=== PATIENT | female | born 1965 | race Caucasian/White ===

== ENCOUNTER 2024-11-21 13:01 | Outpatient (AMB) | payer MEDICAID, SELFPAY ==
[2024-11-21 13:18] VITALS: BP 154/84; PULSE 68; RESP 18; TEMP 36.2; O2SAT 97; BMI 38.0
--- NOTE | 2024-11-21 13:18 | PD.ORTHCLVIS ---
Vital signs 11/21/24 13:18 Height 1.63 m Height Method Measured Weight 100.499 kg Weight Measurement Method Standing Scale BMI 38.0 BP 154/84 H Blood Pressure Source Automatic Cuff Blood Pressure Location Right Upper Arm Position Sitting Respiration 18 Pulse 68 Pulse Source Monitor Temp 97.2 F Temp Source Temporal Artery Scan Pulse Oximetry (%) 97 Oxygen Delivery Method Room Air Med/Allergies Allergies & Medications Allergies No Known Allergies Allergy (Verified 11/21/24 13:23) Medication Reconciliation celecoxib 100 mg capsule 100 mg PO BID 11/21/24 [History Confirmed 11/21/24] gabapentin 300 mg capsule 300 mg PO QDAY 11/21/24 [History Confirmed 11/21/24] hydroxyzine HCl 50 mg tablet 50 mg PO QID PRN 11/21/24 [History Confirmed 11/21/24] lisinopril 5 mg tablet 5 mg PO QDAY 11/21/24 [History Confirmed 11/21/24] methocarbamol 750 mg tablet 750 mg PO QHS 11/21/24 [History Confirmed 11/21/24] omeprazole 20 mg capsule,delayed release 20 mg PO QDAY 11/21/24 [History Confirmed 11/21/24] Exam Exam Patient is in no acute distress and is cooperative with the examination today. Breathing is nonlabored. In no respiratory distress. Bilateral extremities were evaluated and demonstrates sensation intact to light touch. Palpable pedal pulses are present. No significant edema is present. Bilateral hips were examined. The patient has no pain with log roll of the hips. Internal rotation to 30 degrees and external rotation to 30 degrees is painless. Negative FADIR. The left knee was examined. The left knee is in varus alignment. Range of motion from 0-115 degrees. Knee is stable to varus and valgus as well as AP translation with <5mm. Patient has a negative McMurrays. There is no pain with patellofemoral compression and no crepitus noted. The knee is tender to palpation medially. The right knee was also examined. The right knee is in varus alignment. Range of motion from 0-120 degrees. Knee is stable to varus and valgus as well as AP translation with <5mm. Patient has a negative McMurrays. There is no pain with patellofemoral compression and no crepitus noted. The knee is tender to palpation medially. Bilateral knee x-rays from [place] [facility] reviewed. This demonstrates complete collapse of the medial joint space. There is obliteration with varus deformity. Assessment and Plan Problem List (1) Degenerative arthritis of knee, bilateral: Status: Acute Plan: Patient is a 59-year-old female with bilateral knee pain and bilateral knee arthritis of significant severity. We will obtain weightbearing x-rays with a Fay view. We also would like to look at her left ankle as she had a prior reconstruction and I would like to look at the alignment. We will see her back for injections and she will need authorization for this. She has not tried cortisone injection of the left knee Office Procedures [facility] Level of Care Nursing/Assessment Patient Status: Initial/New Patient Nursing Assessment/Reassessment: Medication Reconciliation, Update PMH in EMR and Vital Signs Coordination of Care: Complex Care and Chronic Disease 1-5, Consent,records obtained, informed consent, Education Simp Pt/Fam, Lab and Imaging orders and Staff clarify orders New Patient Charge New Patient Point Assignment: 1099 New Patient Point Charge: INSPECTOR PLUG SEAM Level 3 ([id number]) MA Intake Visit Data Collection New Patient or Established: New Patient (never been to [facility]) Reason for Visit:: POLYARTHRITIS/BILATERAL OA KNEE Seen by Clinical Staff ONLY (RN/MA): No Textile Machine Operator Required: Yes PCP or OBGYN visit in last 3 months: Yes Hx Now: No Do You Feel Safe at Home: Yes Authorities Contacted: N/A Questionairres Past Medical History Past Medical History Have you ever been diagnosed with any of the following: Respiratory Problems Smoking: No (FROMER SMOKER. PATIENT STATED SHE STOPPED FOUR MONTHS AGO ) Smoking Cessation Counseling: Yes Tobacco Use: No Subjective Visit Visit for: new patient and knee Immunization / Flu Flu Vaccine in the Last 12 Months: No Flu Vaccine Exclusion Criteria: Refused by Patient and No Exclusion Criteria History of Present Illness Chief complaint: bilateral knee pain Brenda is a 59-year-old female with bilateral knee pain. The pain has been ongoing for over 3 years. She had a prior ankle reconstruction to garage, deformity. She has had 1 injection before. Personal History Occupation: UNEMPLOYED Hobbies: NONE Pain Pain level (0-10): 8 Pain duration: CONSTANT Pain location: inside (medial) Pain quality: aching and burning Pain timing: increases with activity Associated signs & symptoms: stiffness Ambulatory data Ambulatory device: cane and none Walking distance (minutes): 10 Treatments Improvement with previous injections: No Improvement with PT: No Improvement with NSAIDS: no Review of Systems Review of Systems: All systems negative unless otherwise noted in HPI.
== END 2024-11-21 14:05 | disposition home or self-care (01) ==
PROVIDERS: PCP Family Medicine; Referring Provider Family Medicine; Supervising Provider Orthopaedic Surgery Adult Reconstructive Orthopaedic Surgery; Visit Provider Orthopaedic Surgery Adult Reconstructive Orthopaedic Surgery
DX: M17.0 Bilateral primary osteoarthritis of knee (principal); M25.562 Pain in left knee; M25.561 Pain in right knee
CPT/HCPCS: 99203; G0463

== ENCOUNTER → 2024-11-21 | Outpatient (CLI) | payer MEDICAID, SELFPAY ==
--- NOTE | 2024-11-21 14:21 | XR_ITS ---
Examination: Bilateral knees 2 views Right lateral knee left lateral knee 2 views Bilateral axial knees single view Technique: Bilateral AP knees standing single view, bilateral PA knees standing single view 30 degrees flexion Standing right lateral knee left lateral knee 2 views Bilateral axial knees single view total 5 views Exam date and time: November 21, 2024 1444 hrs. Indications: Knee pain greater than one week. Findings: Moderate osteopenia Advanced narrowing [id number] medial joint spaces bilaterally Advanced osteoarthritis lateral patellofemoral joints No fracture or dislocation involving either knee Impression: Bilateral advanced tricompartment osteoarthritis, including advanced narrowing [id number]-[id number] medial joint spaces
--- NOTE | 2024-11-21 14:21 | XR_ITS ---
EXAMINATION: Ankle, left 3 views . Technique: Ankle AP, oblique, lateral 3 views Date and time of exam: November 21, 2024 1436 hrs. Indications: Ankle pain months Findings: Ankle fusion, talus calcaneus. Moderate to advanced osteoarthritis tibiotalar joint No fracture or dislocation No plantar posterior bony calcaneal spurs Impression: Moderate to advanced osteoarthritis tibiotalar joint
== END | disposition home or self-care (01) ==
LOC: CDIM 13:56
PROVIDERS: PCP Family Medicine; Referring Provider Orthopaedic Surgery Adult Reconstructive Orthopaedic Surgery; Visit Provider Orthopaedic Surgery Adult Reconstructive Orthopaedic Surgery
DX: M25.862 Other specified joint disorders, left knee (principal); M25.861 Other specified joint disorders, right knee; M19.072 Primary osteoarthritis, left ankle and foot
CPT/HCPCS: 73562; 73610

== ENCOUNTER 2024-12-05 13:04 | Outpatient (AMB) | payer MEDICAID, SELFPAY ==
[2024-12-05 13:38] VITALS: BP 162/92; PULSE 63; RESP 19; TEMP 36.5; O2SAT 98; BMI 37.9
--- NOTE | 2024-12-05 13:38 | ORTHONT_ITS ---
Vital signs 12/05/24 13:38 Height 1.63 m Height Method Stated Weight 100.811 kg Weight Measurement Method Standing Scale BMI 37.9 BP 162/92 H Blood Pressure Source Automatic Cuff Blood Pressure Location Right Upper Arm Position Sitting Respiration 19 Pulse 63 Pulse Source Monitor Temp 97.7 F Temp Source Temporal Artery Scan Pulse Oximetry (%) 98 Oxygen Delivery Method Room Air Med/Allergies Allergies & Medications Allergies No Known Allergies Allergy (Verified 12/05/24 13:39) Medication Reconciliation celecoxib 100 mg capsule 100 mg PO BID 11/21/24 [History Confirmed 12/05/24] gabapentin 300 mg capsule 300 mg PO QDAY 11/21/24 [History Confirmed 12/05/24] hydroxyzine HCl 50 mg tablet 50 mg PO QID PRN 11/21/24 [History Confirmed 12/05/24] lisinopril 5 mg tablet 5 mg PO QDAY 11/21/24 [History Confirmed 12/05/24] methocarbamol 750 mg tablet 750 mg PO QHS 11/21/24 [History Confirmed 12/05/24] omeprazole 20 mg capsule,delayed release 20 mg PO QDAY 11/21/24 [History Confirmed 12/05/24] Exam Exam Patient is in no acute distress and is cooperative with the examination today. Breathing is nonlabored. In no respiratory distress. Bilateral extremities were evaluated and demonstrates sensation intact to light touch. Palpable pedal pulses are present. No significant edema is present. Bilateral hips were examined. The patient has no pain with log roll of the hips. Internal rotation to 30 degrees and external rotation to 30 degrees is painless. Negative FADIR. The left knee was examined. The left knee is in varus alignment. Range of motion from 0-115 degrees. Knee is stable to varus and valgus as well as AP translation with <5mm. Patient has a negative McMurrays. There is no pain with patellofemoral compression and no crepitus noted. The knee is tender to palpation medially. The right knee was also examined. The right knee is in varus alignment. Range of motion from 0-120 degrees. Knee is stable to varus and valgus as well as AP translation with <5mm. Patient has a negative McMurrays. There is no pain with patellofemoral compression and no crepitus noted. The knee is tender to palpation medially. Bilateral knee x-rays from [place] [facility] reviewed. This demonstrates complete collapse of the medial joint space. There is obliteration with varus deformity. Assessment and Plan Problem List (1) Degenerative arthritis of knee, bilateral: Status: Acute Plan: Patient is a 59-year-old female with bilateral knee pain and bilateral knee arthritis of significant severity. She would like to try conservative treatment including cortisone injections. Recommend knee cortisone injections as patient would like to proceed with conservative treatment at this time. The risks and benefits of the procedure w ere reviewed with the patient and patient gave verbal consent to continue with the procedure. Procedure: performed by Dr. Simon Using sterile technique the Bilateral knees were thoroughly prepped with alcohol, and approximately 1 cc of Kenalog 40 mg/mL and 4 cc of 1% lidocaine was injected into each knee without resistance into the medial tibial femoral joint space. The patient tolerated the procedure. Office Procedures [facility] Level of Care Nursing/Assessment Patient Status: Established Patient Nursing Assessment/Reassesment: Medication Reconciliation, Update PMH in EMR and Vital Signs Coordination of Care: Complex Care and Chronic Disease 1-5, Education Complex Pt/Fam, Consent,records obtained, informed consent, Results/Orders obtained and Staff clarify orders Special Needs: Language special needs Established Patient Charge Established Patient Point Assignment: 95 Established Patient Point Charge: EP Level 3 (80-115) Surgical Proc/IM SQ injection Major Surgical Procedure: Yes (BILATERAL KNEE INJECTIONS) Medication Given Medication Given Medication Given: Yes Documented Dose Given: 8 Route: Infiitration Medication Given Medication Given Medication Given: Yes Documented Dose Given: 2 Office Meds Xylocaine 10 mg/mL (1 %) injection solution Performing Provider: Bradley Simon MD Performing Location: [facility] Administered by: Bradley Simon MD on 12/05/24 15:26 Dose Route Admin Location Dispensed Lot Number Expiration Date [facility] NAMED [facility] Muck Farmer 40 mL Infiltration 40 mL [id number] FRESENIUS KABI triamcinolone acetonide 40 mg/mL suspension for injection Performing Provider: Bradley Simon MD Performing Location: [facility] Administered by: Bradley Simon MD on 12/05/24 15:26 Dose Route Admin Location Dispensed Lot Number Expiration Date FORMERLY NAMED [facility] Muck Farmer 80 mg intra-articular 2 mL [id number] TEVA PARENTERAL MA Intake Visit Data Collection New Patient or Established: Established Patient (seen at [facility] within 3 years) Reason for Visit:: F/U XRAYS Seen by Clinical Staff ONLY (RN/MA): No Verbal consent obtained for Telemed visit?: No Egg Crater Required: Yes PCP or OBGYN visit in last 3 months: Yes Hx Now: No Do You Feel Safe at Home: Yes Authorities Contacted: N/A Questionairres Past Medical History Past Medical History Have you ever been diagnosed with any of the following: Respiratory Problems Smoking: No (FROMER SMOKER. PATIENT STATED SHE STOPPED FOUR MONTHS AGO ) Smoking Cessation Counseling: Yes Tobacco Use: No Subjective Visit Visit for: follow up visit, knee and x-rays Immunization / Flu Flu Vaccine in the Last 12 Months: No Flu Vaccine Exclusion Criteria: No Exclusion Criteria History of Present Illness Chief complaint: F/U XRAYS & POSSIBLE KNEE INJECTION Brenda is a 59-year-old female with bilateral knee pain. The pain has been ongoing for over 3 years. She had a prior ankle reconstruction to garage, deformity. She has had 1 injection before on the right. Personal History Occupation: UNEMPLOYED Hobbies: NONE Pain Pain level (0-10): 5 Pain duration: CONSTANT Pain location: inside (medial), outside (lateral), anterior and posterior Pain quality: sharp, dull and aching Pain timing: increases with activity Associated signs & symptoms: stiffness Ambulatory data Ambulatory device: cane Walking distance (minutes): 10 Treatments Improvement with previous injections: No Improvement with PT: No Improvement with NSAIDS: no Review of Systems Review of Systems: All systems negative unless otherwise noted in HPI.
== END 2024-12-05 13:58 | disposition home or self-care (01) ==
LOC: HODSRG 13:04
PROVIDERS: PCP Family Medicine; Referring Provider Family Medicine; Supervising Provider Orthopaedic Surgery Adult Reconstructive Orthopaedic Surgery; Visit Provider Orthopaedic Surgery Adult Reconstructive Orthopaedic Surgery
DX: M17.0 Bilateral primary osteoarthritis of knee (principal); M25.562 Pain in left knee; M25.561 Pain in right knee
CPT/HCPCS: 20610; 99213; J3301; J3490; G0463

== ENCOUNTER 2025-03-13 12:49 | Outpatient (AMB) | payer MEDICAID, SELFPAY ==
[2025-03-13 13:08] VITALS: BP 134/77; PULSE 75; RESP 18; TEMP 35.9; O2SAT 96; BMI 39.3
--- NOTE | 2025-03-13 13:08 | PD.ORTHCLVIS ---
Vital signs 03/13/25 13:08 Height 1.63 m Height Method Stated Weight 104.468 kg Weight Measurement Method Standing Scale BMI 39.3 BP 134/77 H Blood Pressure Source Automatic Cuff Blood Pressure Location Right Upper Arm Position Sitting Respiration 18 Pulse 75 Pulse Source Monitor Temp 96.7 F L Temp Source Temporal Artery Scan Pulse Oximetry (%) 96 Oxygen Delivery Method Room Air Med/Allergies Allergies & Medications Allergies No Known Allergies Allergy (Verified 03/13/25 13:09) Medication Reconciliation celecoxib 100 mg capsule 100 mg PO BID 11/21/24 [History Confirmed 03/13/25] gabapentin 300 mg capsule 300 mg PO QDAY 11/21/24 [History Confirmed 03/13/25] hydroxyzine HCl 50 mg tablet 50 mg PO QID PRN 11/21/24 [History Confirmed 03/13/25] lisinopril 5 mg tablet 5 mg PO QDAY 11/21/24 [History Confirmed 03/13/25] methocarbamol 750 mg tablet 750 mg PO QHS 11/21/24 [History Confirmed 03/13/25] omeprazole 20 mg capsule,delayed release 20 mg PO QDAY 11/21/24 [History Confirmed 03/13/25] Exam Exam Patient is in no acute distress and is cooperative with the examination today. Breathing is nonlabored. In no respiratory distress. Bilateral extremities were evaluated and demonstrates sensation intact to light touch. Palpable pedal pulses are present. No significant edema is present. Bilateral hips were examined. The patient has no pain with log roll of the hips. Internal rotation to 30 degrees and external rotation to 30 degrees is painless. Negative FADIR. The left knee was examined. The left knee is in varus alignment. Range of motion from 0-115 degrees. Knee is stable to varus and valgus as well as AP translation with <5mm. Patient has a negative McMurrays. There is no pain with patellofemoral compression and no crepitus noted. The knee is tender to palpation medially. The right knee was also examined. The right knee is in varus alignment. Range of motion from 0-120 degrees. Knee is stable to varus and valgus as well as AP translation with <5mm. Patient has a negative McMurrays. There is no pain with patellofemoral compression and no crepitus noted. The knee is tender to palpation medially. Bilateral knee x-rays from [place] [facility] reviewed. This demonstrates complete collapse of the medial joint space. There is obliteration with varus deformity. Assessment and Plan Problem List (1) Degenerative arthritis of knee, bilateral: Status: Acute Plan: Patient is a 59-year-old female with bilateral knee pain and bilateral knee arthritis of significant severity. She would like to try conservative treatment including cortisone injections. Recommend knee cortisone injections as patient would like to proceed with conservative treatment at this time. The risks and benefits of the procedure were reviewed with the patient and patient gave verbal consent to continue with the procedure. Procedure: performed by Dr. Simon Using sterile technique the Bilateral knees were thoroughly prepped with alcohol, and approximately 1 cc of Kenalog 40 mg/mL and 4 cc of 1% lidocaine was injected into each knee without resistance into the medial tibial femoral joint space. The patient tolerated the procedure. Office Procedures [facility] Level of Care Nursing/Assessment Patient Status: Established Patient Nursing Assessment/Reassesment: Medication Reconciliation, Update PMH in EMR and Vital Signs Coordination of Care: Complex Care and Chronic Disease 1-5, Education Complex Pt/Fam, Consent,records obtained, informed consent, Results/Orders obtained and Staff clarify orders Established Patient Charge Established Patient Point Assignment: 95 Established Patient Point Charge: EP Level 3 (80-115) Surgical Proc/IM SQ injection Major Surgical Procedure: Yes (knee injection ) Medication Given Medication Given Medication Given: Yes Documented Dose Given: 8 Route: Infiitration Medication Given Medication Given Medication Given: Yes Documented Dose Given: 8 Route: Infiitration Office Meds Xylocaine 10 mg/mL (1 %) injection solution Performing Provider: Bradley Simon MD Performing Location: [facility] Administered by: Bradley Simon MD on 03/13/25 13:22 Dose Route Admin Location Dispensed Lot Number Expiration Date [facility] Mechanical Applications Engineer 40 mL Infiltration KNEE 40 mL [id number] 04/22/28 22792-320-10 FRESENIUS KA triamcinolone acetonide 40 mg/mL suspension for injection Performing Provider: Bradley Simon MD Performing Location: [facility] Administered by: Bradley Simon MD on 03/13/25 13:22 Dose Route Admin Location Dispensed Lot Number Expiration Date [facility] Mechanical Applications Engineer 80 mg intra-articular 2 mL [id number] 08/22/26 5752-1086-26 TEVA PARENTERAL MA Intake Visit Data Collection New Patient or Established: Established Patient (seen at [facility] within 3 years) Reason for Visit:: bilateral knee injection Seen by Clinical Staff ONLY (RN/MA): No Verbal consent obtained for Telemed visit?: No Protective Service Specialist Required: Yes PCP or OBGYN visit in last 3 months: Yes Hx Now: No Do You Feel Safe at Home: Yes Authorities Contacted: N/A Questionairres Past Medical History Past Medical History Have you ever been diagnosed with any of the following: Respiratory Problems Smoking: No (FROMER SMOKER. PATIENT STATED SHE STOPPED FOUR MONTHS AGO ) Smoking Cessation Counseling: Yes Tobacco Use: No Subjective Visit Visit for: follow up visit, knee and injections Immunization / Flu Flu Vaccine in the Last 12 Months: No Flu Vaccine Exclusion Criteria: No Exclusion Criteria History of Present Illness Chief complaint: bilateral knee injections Brenda is a 59-year-old female with bilateral knee pain. The pain has been ongoing for over 3 years. She had a prior ankle reconstruction to garage, deformity. She has had 2 injections before on the right. She did well and would like bilateral knee injections today Personal History Occupation: disabled Hobbies: NONE Red flag PMH: BMI BMI Counceling provided: Yes Pain Pain level (0-10): 7 Pain duration: constant Pain location: inside (medial), outside (lateral), anterior and posterior Pain quality: sharp, dull and aching Pain timing: increases with activity Associated signs & symptoms: stiffness Ambulatory data Ambulatory device: cane Walking distance (minutes): 10 Treatments Improvement with previous injections: Yes Improvement with PT: No Improvement with NSAIDS: no Review of Systems Review of Systems: All systems negative unless otherwise noted in HPI.
== END 2025-03-13 13:35 | disposition home or self-care (01) ==
LOC: HODSRG 12:49
PROVIDERS: PCP Family Medicine; Referring Provider Family Medicine; Supervising Provider Orthopaedic Surgery Adult Reconstructive Orthopaedic Surgery; Visit Provider Orthopaedic Surgery Adult Reconstructive Orthopaedic Surgery
DX: M17.0 Bilateral primary osteoarthritis of knee (principal)
CPT/HCPCS: 20610; 99213; J3301; J3490; G0463

== ENCOUNTER 2025-06-12 13:42 | Outpatient (AMB) | payer MEDICAID, SELFPAY ==
--- NOTE | 2025-06-12 13:58 | PD.ORTHCLVIS ---
Vital signs 06/12/25 14:12 Height 1.63 m Height Method Stated Weight 102.654 kg Weight Measurement Method Standing Scale BMI 38.6 BP 125/80 Blood Pressure Source Automatic Cuff Blood Pressure Location Left Upper Arm Position Sitting Respiration 18 Pulse 75 Pulse Source Monitor Temp 97.6 F Temp Source Temporal Artery Scan Pulse Oximetry (%) 95 Oxygen Delivery Method Room Air Med/Allergies Allergies & Medications Allergies No Known Allergies Allergy (Verified 06/12/25 14:13) Medication Reconciliation celecoxib 100 mg capsule 100 mg PO BID 11/21/24 [History Confirmed 06/12/25] gabapentin 300 mg capsule 300 mg PO QDAY 11/21/24 [History Confirmed 06/12/25] hydroxyzine HCl 50 mg tablet 50 mg PO QID PRN 11/21/24 [History Confirmed 06/12/25] lisinopril 5 mg tablet 5 mg PO QDAY 11/21/24 [History Confirmed 06/12/25] methocarbamol 750 mg tablet 750 mg PO QHS 11/21/24 [History Confirmed 06/12/25] omeprazole 20 mg capsule,delayed release 20 mg PO QDAY 11/21/24 [History Confirmed 06/12/25] Exam Exam Patient is in no acute distress and is cooperative with the examination today. Breathing is nonlabored. In no respiratory distress. Bilateral extremities were evaluated and demonstrates sensation intact to light touch. Palpable pedal pulses are present. No significant edema is present. Bilateral hips were examined. The patient has no pain with log roll of the hips. Internal rotation to 30 degrees and external rotation to 30 degrees is painless. Negative FADIR. The left knee was examined. The left knee is in varus alignment. Range of motion from 0-115 degrees. Knee is stable to varus and valgus as well as AP translation with <5mm. Patient has a negative McMurrays. There is no pain with patellofemoral compression and no crepitus noted. The knee is tender to palpation medially. The right knee was also examined. The right knee is in varus alignment. Range of motion from 0-120 degrees. Knee is stable to varus and valgus as well as AP translation with <5mm. Patient has a negative McMurrays. There is no pain with patellofemoral compression and no crepitus noted. The knee is tender to palpation medially. Bilateral knee x-rays from [facility] reviewed. This demonstrates complete collapse of the medial joint space. There is obliteration with varus deformity. Assessment and Plan Problem List (1) Degenerative arthritis of knee, bilateral: Status: Acute Plan: Patient is a 59-year-old female with bilateral knee pain and bilateral knee arthritis of significant severity. She would like to try conservative treatment including cortisone injections. Recommend knee cortisone injections as patient would like to proceed with conservative treatment at this time. The risks and benefits of the procedure were reviewed with the patient and patient gave verbal consent to continue with the procedure. Procedure: performed by Dr. Simon Using sterile technique the Bilateral knees were thoroughly prepped with alcohol, and approximately 1 cc of Kenalog 40 mg/mL and 4 cc of 1% lidocaine was injected into each knee without resistance into the medial tibial femoral joint space. The patient tolerated the procedure. Office Procedures GNS Level of Care Nursing/Assessment Patient Status: Established Patient Nursing Assessment/Reassesment: Medication Reconciliation, Update PMH in EMR and Vital Signs Coordination of Care: Complex Care and Chronic Disease 1-5, Education Complex Pt/Fam, Consent,records obtained, informed consent, Results/Orders obtained and Staff clarify orders Established Patient Charge Established Patient Point Assignment: 95 Established Patient Point Charge: EP Level 3 (80-115) Surgical Proc/IM SQ injection Major Surgical Procedure: Yes (BILATERAL KNEE INJECTION) Medication Given Medication Given Medication Given: Yes Documented Dose Given: 2 Route: Infiitration Medication Given Medication Given Medication Given: No Office Meds Xylocaine 10 mg/mL (1 %) injection solution Performing Provider: Bradley Simon MD Performing Location: [facility] Documented (not given) by: Bradley Simon MD on 06/12/25 14:14 Reason Not Given: Entered in Error methylprednisolone acetate 80 mg/mL suspension for injection Performing Provider: Bradley Simon MD Performing Location: [facility] Administered by: Bradley Simon MD on 06/12/25 15:18 Dose Route Admin Location Dispensed Lot Number Expiration Date NDC Seed Yeast Operator 80 mg intra-articular 1 mL triamcinolone acetonide 40 mg/mL suspension for injection Performing Provider: Bradley Simon MD Performing Location: [facility] Documented (not given) by: Joselin Jo on 06/12/25 15:19 Reason Not Given: Entered in Error triamcinolone acetonide 40 mg/mL suspension for injection Performing Provider: Bradley Simon MD Performing Location: [facility] Documented (not given) by: Bradley Simon MD on 06/12/25 14:14 Reason Not Given: Entered in Error MA Intake Visit Data Collection New Patient or Established: Established Patient (seen at [facility] within 3 years) Reason for Visit:: BILATERAL KNEE INJECTION F/U Seen by Clinical Staff ONLY (RN/MA): No Thermal Technician Required: Yes PCP or OBGYN visit in last 3 months: Yes Hx Now: No Do You Feel Safe at Home: Yes Authorities Contacted: N/A Questionairres Past Medical History Past Medical History Have you ever been diagnosed with any of the following: Respiratory Problems Smoking: No (FROMER SMOKER. PATIENT STATED SHE STOPPED FOUR MONTHS AGO ) Smoking Cessation Counseling: Yes Tobacco Use: No Subjective Visit Visit for: follow up visit, knee and injections Immunization / Flu Flu Vaccine in the Last 12 Months: No Flu Vaccine Exclusion Criteria: No Exclusion Criteria History of Present Illness Chief complaint: bilateral knee injections Brenda is a 59-year-old female with bilateral knee pain. The pain has been ongoing for over 3 years. She had a prior ankle reconstruction to garage, deformity. She has had 2 injections before on the right. She did well and would like bilateral knee injections today Personal History Occupation: disabled Hobbies: NONE Red flag PMH: BMI BMI Counceling provided: Yes Pain Pain level (0-10): 7 Pain duration: constant Pain location: inside (medial), outside (lateral), anterior and posterior Pain quality: sharp, dull and aching Pain timing: increases with activity Associated signs & symptoms: stiffness Ambulatory data Ambulatory device: cane Walking distance (minutes): 10 Treatments Improvement with previous injections: Yes Improvement with PT: No Improvement with NSAIDS: no Review of Systems Review of Systems: All systems negative unless otherwise noted in HPI.
[2025-06-12 14:12] VITALS: BP 125/80; PULSE 75; RESP 18; TEMP 36.4; O2SAT 95; BMI 38.6
== END 2025-06-12 14:12 | disposition home or self-care (01) ==
LOC: HODSRG 13:42
PROVIDERS: PCP Family Medicine; Referring Provider Family Medicine; Supervising Provider Orthopaedic Surgery Adult Reconstructive Orthopaedic Surgery; Visit Provider Orthopaedic Surgery Adult Reconstructive Orthopaedic Surgery
DX: M17.0 Bilateral primary osteoarthritis of knee (principal); M25.562 Pain in left knee; M25.561 Pain in right knee
CPT/HCPCS: 20610; 99213; J1010; J2795; G0463

== ENCOUNTER 2025-10-11 13:50 | Outpatient (AMB) | payer MEDICAID, SELFPAY ==
[2025-10-11 14:16] VITALS: BP 148/86; PULSE 76; RESP 19; TEMP 36.6; O2SAT 98; BMI 39.4
--- NOTE | 2025-10-11 14:16 | ORTHONT_ITS ---
Vital signs 10/11/25 14:16 Height 1.63 m Height Method Stated Weight 104.95 kg Weight Measurement Method Standing Scale BMI 39.4 BP 148/86 H Blood Pressure Source Automatic Cuff Blood Pressure Location Left Upper Arm Position Sitting Respiration 19 Pulse 76 Pulse Source Monitor Temp 97.8 F Temp Source Temporal Artery Scan Pulse Oximetry (%) 98 Oxygen Delivery Method Room Air Med/Allergies Allergies & Medications Allergies No Known Allergies Allergy (Verified 10/11/25 14:17) Medication Reconciliation celecoxib 100 mg capsule 100 mg PO BID 11/21/24 [History Confirmed 10/11/25] gabapentin 300 mg capsule 300 mg PO QDAY 11/21/24 [History Confirmed 10/11/25] hydroxyzine HCl 50 mg tablet 50 mg PO QID PRN 11/21/24 [History Confirmed 10/11/25] lisinopril 5 mg tablet 5 mg PO QDAY 11/21/24 [History Confirmed 10/11/25] methocarbamol 750 mg tablet 750 mg PO QHS 11/21/24 [History Confirmed 10/11/25] omeprazole 20 mg capsule,delayed release 20 mg PO QDAY 11/21/24 [History Confirmed 10/11/25] Exam Exam Patient is in no acute distress and is cooperative with the examination today. Breathing is nonlabored. In no respiratory distress. Bilateral extremities were evaluated and demonstrates sensation intact to light touch. Palpable pedal pulses are present. No significant edema is present. Bilateral hips were examined. The patient has no pain with log roll of the hips. Internal rotation to 30 degrees and external rotation to 30 degrees is painless. Negative FADIR. The left knee was examined. The left knee is in varus alignment. Range of motion from 0-115 degrees. Knee is stable to varus and valgus as well as AP translation with <5mm. Patient has a negative McMurrays. There is no pain with patellofemoral compression and no crepitus noted. The knee is tender to palpation medially. The right knee was also examined. The right knee is in varus alignment. Range of motion from 0-120 degrees. Knee is stable to varus and valgus as well as AP translation with <5mm. Patient has a negative McMurrays. There is no pain with patellofemoral compression and no crepitus noted. The knee is tender to palpation medially. Bilateral knee x-rays from [facility] reviewed. This demonstrates complete collapse of the medial joint space. There is obliteration with varus deformity. Assessment and Plan Problem List (1) Degenerative arthritis of knee, bilateral: Status: Acute Plan: Patient is a 59-year-old female with bilateral knee pain and bilateral knee arthritis of significant severity. She would like to try conservative treatment including cortisone injections again as she had great relief with the last injection. Recommend knee cortisone injection as patient would like to proceed with conservative treatment at this time. The risks and benefits of the procedure were reviewed with the patient and patient gave verbal consent to continue with the procedure. Procedure: performed by Dr. Simon Using sterile technique the Right knee was thoroughly prepped with alcohol, and approximately 1 cc of Depo-Medrol 80mg/mL and 4 cc of 0.2% ropivacaine was injected without resistance into the medial tibial femoral joint space. The patient tolerated the procedure. Recommend knee cortisone injection as patient would like to proceed with conservative treatment at this time. The risks and benefits of the procedure were reviewed with the patient and patient gave verbal consent to continue with the procedure. Procedure: performed by Dr. Simon Using sterile technique the leftknee was thoroughly prepped with alcohol, and approximately 1 cc of Depo- Medrol 80mg/mL and 4 cc of 0.2% ropivacaine was injected without resistance into the medial tibial femoral joint space. The patient tolerated the procedure. Office Procedures GNS Level of Care Nursing/Assessment Patient Status: Established Patient Nursing Assessment/Reassesment: Medication Reconciliation, Update PMH in EMR and Vital Signs Coordination of Care: Complex Care and Chronic Disease 1-5, Education Complex Pt/Fam, Consent,records obtained, informed consent, Results/Orders obtained and Staff clarify orders Established Patient Charge Established Patient Point Assignment: 95 Established Patient Point Charge: EP Level 3 (80-115) Surgical Proc/IM SQ injection Minor Surgical Procedure: Yes (BILATERAL KNEE INJECTION) Medication Given Medication Given Medication Given: Yes Documented Dose Given: 2 Route: Infiitration Medication Given Medication Given Medication Given: Yes Documented Dose Given: 8 Route: Infiitration Office Meds methylprednisolone acetate 80 mg/mL suspension for injection Performing Provider: Bradley Simon MD Performing Location: [facility] Administered by: Bradley Simon MD on 10/11/25 14:42 Dose Route Admin Location Dispensed Lot Number Expiration Date Pack age NDC NDC Wax Room Supervisor 160 mg intra-articular KNEE 2 mL [id number] 06/20/27 [address]-8 7 [id number] [employer] ropivacaine (PF) 2 mg/mL (0.2 %) injection solution Performing Provider: Bradley Simon MD Performing Location: [facility] Administered by: Bradley Simon MD on 10/11/25 14:42 Dose Route Admin Location Dispensed Lot Number Expiration Date Pack age [facility] Wax Room Supervisor 40 mL Infiltration KNEE 40 mL [id number] 12/21/27 75818-825-85 [id number] [facility] Intake Visit Data Collection New Patient or Established: Established Patient (seen at [facility] within 3 years) Reason for Visit:: BILATERAL KNEE INJECTION F/U Seen by Clinical Staff ONLY (RN/MA): No Craft Artist Required: Yes PCP or OBGYN visit in last 3 months: Yes Hx Now: No Do You Feel Safe at Home: Yes Authorities Contacted: N/A Questionairres Past Medical History Past Medical History Have you ever been diagnosed with any of the following: Respiratory Problems Smoking: No (FROMER SMOKER. PATIENT STATED SHE STOPPED FOUR MONTHS AGO ) Smoking Cessation Counseling: Yes Tobacco Use: No Subjective Visit Visit for: follow up visit, knee and injections Immunization / Flu Flu Vaccine in the Last 12 Months: No Flu Vaccine Exclusion Criteria: No Exclusion Criteria History of Present Illness Chief complaint: bilateral knee injections Brenda is a 59-year-old female with bilateral knee pain. The pain has been ongoing for over 3 years. She has had 3 injections before on the right. She did well and would like bilateral knee injections today Personal History Occupation: disabled Hobbies: NONE Red flag PMH: BMI BMI Counceling provided: Yes Pain Pain level (0-10): 7 Pain duration: constant Pain location: inside (medial), outside (lateral), anterior and posterior Pain quality: sharp, dull and aching Pain timing: increases with activity Associated signs & symptoms: stiffness Ambulatory data Ambulatory device: cane Walking distance (minutes): 10 Treatments Improvement with previous injections: Yes Improvement with PT: No Improvement with NSAIDS: no Review of Systems Review of Systems: All systems negative unless otherwise noted in HPI.
== END 2025-10-11 14:35 | disposition home or self-care (01) ==
LOC: HODSRG 13:50
PROVIDERS: PCP Family Medicine; Referring Provider Family Medicine; Supervising Provider Orthopaedic Surgery Adult Reconstructive Orthopaedic Surgery; Visit Provider Orthopaedic Surgery Adult Reconstructive Orthopaedic Surgery
DX: M25.562 Pain in left knee (principal); M25.561 Pain in right knee; M17.0 Bilateral primary osteoarthritis of knee
CPT/HCPCS: 20610; 99213; J1010; J2795; G0463